=== PATIENT | female | born 1975 | race African-American/Black ===

== ENCOUNTER 2022-04-26 12:18 | Emergency (ER) | payer MEDICAID, OTHER ==
[~2022-04-26] VITALS: Ht 165.1 cm; Wt 84.0 kg
[~2022-04-26 12:18] MED LIST: IBUP-2028 PO
[2022-04-26 12:38] VITALS: BP 144/87
[2022-04-26 13:24] LABS: CLARITY URINE CLEAR (CLEAR); COLOR URINE YELLOW (YELLOW); KETONES URINE NEGATIVE (NEGATIVE); LEUKOCYTE ESTERASE URINE 1+ (NEGATIVE); NITRITE URINE NEGATIVE (NEGATIVE); OCCULT BLOOD URINE TRACE (NEGATIVE); PH URINE 8.5 (4.5-8.0); PROTEIN URINE TRACE (NEGATIVE); SPECIFIC GRAVITY URINE 1.024 (1.005-1.030)
[2022-04-26 16:56] LABS: BASOPHILS % 0.6 % (0.0-2.0); HEMOGLOBIN. 13.8 g/dL (12.0-16.0); MEAN CORPUSCULAR VOLUME 92.3 fL (81.0-99.0); MEAN PLATELET VOLUME 7.5 fl (7.4-10.4); MONOCYTES % 7.1 % (2.0-8.0); NEUTROPHILS % 82.3 % (40.0-76.0); PLATELET 354 x1000/uL (130-400); RED BLOOD CELL COUNT 4.44 mill/uL (4.2-5.4); RED CELL DISTRIBUTION WIDTH 12.9 % (11.6-14.6)
[2022-04-26 17:00] LABS: CHLORIDE 109 mEq/L (98-107)
[2022-04-26 17:10] LABS: B-HCG QUANTITATIVE < 1 mIU/mL (<3)
[2022-04-26] MEDS ORDERED: NITR-87 MT (19:17)
== END 2022-04-26 19:26 | disposition home or self-care (01) ==
LOC: ER 12:18
DX: O23.41 Unspecified infection of urinary tract in pregnancy, first trimester (principal); N39.0 Urinary tract infection, site not specified; Z3A.12 12 weeks gestation of pregnancy
CPT/HCPCS: 36415; 71045; 76830; 76856; 80048; 81003; 81025; 84702; 85025; 86850; 86900; 99285